=== PATIENT | male | born 1985 | race Two or more races ===

== ENCOUNTER → 2021-04-26 | Day surgery (SDC) | payer OTHER ==
[~2021-04-26] MED LIST: ACETAMINOPHEN 325 MG TABLET PO PRN; ALBUTEROL SULFATE 2.5 MG/3 ML NEBU. NEB PRN; ATROPINE 0.5 MG/5 ML DISP.SYRIN. IV PRN; IV RINGERS SOLUTION,LACTATED 1,000 ML IV SCH; LIDO1ADH63 TP; MELA3TAB43 PO; MELO15TA23 PO; MIDAZOLAM HCL PF 2 MG/2 ML VIAL. IV PRN; MULT-445 PO; NYST15PO9 TP; OMEG-33 PO; ONDANSETRON PF 4 MG/2 ML VIAL. IV PRN; PHENOL ORAL SPRAY 177ML BOTTLE. MM PRN; PROPOFOL 10,000 MCG/ML (20ML) VIAL IV ONE; PSYL0.5215 PO; atorvastatin PEG; cholecalciferol PO; diphenhydrAMINE 50 MG/ML VIAL IV PRN; ergocalciferol PO; fluoxetine PO; hydroxyzine PO; prazosin PO; propranolol PO
[2021-04-26 12:30] VITALS: BP 130/66
--- NOTE | 2021-05-01 16:10 | PATHOLOGY ---
[facility] Accession Number: [id number] . 01 Material submitted: . stomach - ANTRUM GASTRITIS BIOPSY . 01 Clinical history: . RUQ PAIN,HIGH RISK SCREEN EGD AND COLONOSCOPY . 02 Diagnosis: Gastric biopsies, antrum: - Congestion and slight chronic inflammation. (JPM:luh; 05/01/2021) [facility] [place]/01/2021 0929 Local . 02 Comment: Sections of the gastric biopsy reveal gastric antral/body transition mucosa showing congestion and slight chronic inflammation. A properly controlled immunoperoxidase stain for Helicobacter is negative for Helicobacter organisms. (JPM:luh; 05/01/2021) . Special stain performed: Immunoperoxidase stain for Helicobacter on A1 . 02 Electronically signed: . Lauri Brown MD, Pathologist NPI- [id number] . 01 Gross description: . The specimen is received in formalin, labeled "Shaheed Rodriguez, antrum gastritis biopsy" received as 2 fragments of soft lim tissue measuring up to 0.3 cm. Entirely submitted in A1. ([facility]; 04/30/2021) VIRGILIO/VIRGILIO 05/01/2021 0927 Local . 02 Pathologist provided ICD-10: K31.89, K29.50 . 02 CPT . [id number], [id number] Specimen Comment: A courtesy copy of this report has been sent to [phone] Specimen Comment: Report sent to Performed at: 01 [facility] [address], [place] [id number] MD Abhinav Porter MD Phone: [phone] Performed at: 02 [facility] [address] [place], [place] [id number] MD Lauri Brown MD Phone: [phone]
== END | disposition home or self-care (01) ==
LOC: SURG 10:00
PROVIDERS: ATTEND Internal Medicine Gastroenterology
DX: Z12.11 Encounter for screening for malignant neoplasm of colon (principal); R10.11 Right upper quadrant pain; Z80.0 Family history of malignant neoplasm of digestive organs; K64.8 Other hemorrhoids; K31.89 Other diseases of stomach and duodenum; K29.50 Unspecified chronic gastritis without bleeding; K44.9 Diaphragmatic hernia without obstruction or gangrene; K21.00 Gastro-esophageal reflux disease with esophagitis, without bleeding; K22.2 Esophageal obstruction; G47.00 Insomnia, unspecified; I10 Essential (primary) hypertension; E78.00 Pure hypercholesterolemia, unspecified; Z79.899 Other long term (current) drug therapy
CPT/HCPCS: 43239; 45378; J2704; 88305; 88342